=== PATIENT | female | born 1990 | race Caucasian/White ===

== ENCOUNTER 2024-05-07 21:37 | Emergency (ER) | payer OTHER ==
[~2024-05-07] VITALS: Ht 160 cm; Wt 79.8 kg
[~2024-05-07 21:37] MED LIST: PROMETHAZINE HC25 M1 PO
[2024-05-07 21:55] LABS: BASOPHILS 0.9 % (0-2); EOSINOPHILS 1.6 % (0-6); HEMATOCRIT 37.1 % (35.0-50.0); HEMOGLOBIN 12.6 g/dL (12.0-18.0); LYMPHOCYTES 27.1 % (24-44); MCH 29.5 (27-36); MONOCYTES 6.4 % (0-12); PLATELET COUNT 284 K/uL (140-440); RBC 4.26 M/ul (4.3-5.7); RDW 13.4 (10.5-15.0)
[2024-05-07] MEDS ORDERED: ondansetron HCL 4 MG/2 ML VIAL IV ONE (22:00)
[2024-05-07] MEDS ORDERED: MORPHINE SULFATE 4 MG/ML VIAL IV ONE (22:00)
[2024-05-07] MEDS ORDERED: SODIUM CHLORIDE 0.9% 1,000 ML IV ONE (22:00)
[2024-05-07 22:05] LABS: ALBUMIN 3.7 g/dL (3.4-5.0); ALBUMIN/GLOBULIN RATIO 1.03 (1.1-2.4); ANION GAP 12.8 (7-21); BILIRUBIN, TOTAL 0.2 mg/dL (0.2-1.0); BUN/CREATININE RATIO 20.83 (6.0-28.6); CALCIUM 9.1 mg/dL (8.5-10.1); CREATININE, SERUM 0.72 mg/dL (0.55-1.02); POTASSIUM 3.8 mmol/L (3.5-5.1); PROTEIN, TOTAL 7.3 g/dL (6.4-8.2)
[2024-05-07] MEDS ORDERED: ONDANSETRON 4 MG HOME.PACK SL ONE (23:45)
[2024-05-07] MEDS ORDERED: HYDROCODONE BIT/ACETAMINOPHEN 5/325 MG 1 TAB HOME.PACK PO ONE (23:45)
[2024-05-07 23:48] LABS: BILIRUBIN, URINE NEGATIVE (negative); BLOOD/HGB, URINE NEGATIVE (Negative); KETONE, URINE NEGATIVE (Negative); LEUK ESTERASE, URINE NEGATIVE (negative); NITRITE, URINE NEGATIVE (negative)
[2024-05-07] MEDS ORDERED: ONDANSETRON ODT8 MG PO (23:55)
[2024-05-07] MEDS ORDERED: HYDROCODON-ACE1 EA10 PO (23:55)
[2024-05-08 00:15] VITALS: BP 116/56
== END 2024-05-08 00:30 | disposition home or self-care (01) ==
LOC: ED 21:37
PROVIDERS: Family Medicine
DX: K82.8 Other specified diseases of gallbladder (principal)
CPT/HCPCS: 36415; 76705; 80053; 81003; 83690; 84703; 85025; 96374; 96375; 99284-25; A9270; J2270; J2405; J7030